=== PATIENT | female | born 1990 | race Caucasian/White ===

== ENCOUNTER 2016-03-23 23:16 | Inpatient (IN) ==
[2016-03-24 00:38] LABS: Amphetamine Screen,Urine Negative ng/mL (Cutoff=1000); Barbiturate Screen,Urine Negative ng/mL (Cutoff=200); Benzodiazepines Screen,Urine Negative ng/mL (Cutoff=200); Cannabinoid Screen,Urine Negative ng/mL (Cutoff = 50); Cocaine Screen,Urine Negative ng/mL (Cutoff= 300); Opiate Screen,Urine Negative ng/mL (Cutoff=300); Phencyclidine Screen,Urine Negative ng/mL (Cutoff=25)
[2016-03-24 00:45] LABS: Bilirubin,Urine Negative (Negative); Blood,Urine Negative (Negative); Clarity,Urine Clear (Clear); Color,Urine Yellow (Yellow); Glucose,Urine (UA) Normal (Normal); Ketones,Urine Negative (Negative); Leukocyte Esterase,Urine Negative (Negative); Nitrite,Urine Negative (Negative); Protein,Urine Negative (Neg-Trace); Specific Gravity,Urine >= 1.030 (1.010-1.025); Urobilinogen,Urine Normal (Normal)
[2016-03-24 01:07] LABS: Acetaminophen < 1.0 mcg/mL (10-30); Ethanol < 10 mg/dL (0-10); Salicylate < 5.0 mg/dL (15-30)
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
[2016-03-24 02:13] LABS: Alanine Aminotransferase 11 Units/L (0-55); Albumin/Globulin Ratio 1.2 (1.1-2.2); Alkaline Phosphatase 102 Units/L (38-126); Aspartate Amino Transferase 16 Units/L (5-34); BUN/Creatinine Ratio 21 (6-26); Bilirubin,Direct 0.1 mg/dL (0.0-0.5); Bilirubin,Indirect 0.1 mg/dL (0.0-1.2); Bilirubin,Total 0.2 mg/dL (0.2-1.2); Blood Urea Nitrogen 16 mg/dL (7-20); Calcium 9.9 mg/dL (8.6-10.8); Carbon Dioxide 17 mEq/L (19-29); Chloride 111 mEq/L (98-109); Globulin 3.4 g/dL (2.4-3.5); Glucose 88 mg/dL (70-99); Osmolality,Calculated 289 (280-300); Potassium 3.9 mEq/L (3.5-4.5); Sodium 139 mEq/L (136-145); Total Protein 7.4 g/dL (6.0-8.3); eGFR For African Americans > 60 (> 60); eGFR For Non-African Americans > 60 (> 60)
[2016-03-24 02:34] LABS: Thyroid Stimulating Hormone 0.745 mcIU/mL (0.350-4.840)
[2016-03-24 02:43] LABS: Basophils # 0.1 K/mcL (0.0-0.2); Basophils % 0.5 %; Eosinophils # 0.5 K/mcL (0.0-0.6); Eosinophils % 4.9 %; Hemoglobin 13.5 g/dL (11.5-15.4); Immature Granulocytes % 0.2 % (0-4); Immature Platelets 1.4 % (1.1-6.1); Lymphocytes # 3.2 K/mcL (0.6-4.6); Lymphocytes % 33.5 %; Mean Corpuscular HGB Conc 32.9 g/dL (31.6-35.5); Mean Corpuscular Volume 88.2 fL (83.0-100.0); Mean Platelet Volume 8.9 fL (9.4-12.4); Monocytes # 0.6 K/mcL (0.0-1.3); Monocytes % 6.1 %; Neutrophils # 5.2 K/mcL (1.6-8.9); Platelet Count 286 K/mcL (140-400); Red Blood Count 4.65 M/mcL (3.82-4.97); Red Cell Distribution Width 12.9 % (11.5-14.5); Segmented Neutrophils % 54.8 %
[2016-03-24] MEDS ORDERED: hydrOXYzine pamoate 25 MG CAPSULE PO PRN (05:48)
[2016-03-24] MEDS ORDERED: Acetaminophen 325 MG TABLET PO PRN (05:48)
[2016-03-24] MEDS ORDERED: *HR* LORazepam 2 MG/ML VIAL IM PRN ×2 (05:48→05:57)
[2016-03-24] MEDS ORDERED: Haloperidol Lactate 5 MG/ML VIAL IM PRN (05:48)
[2016-03-24] MEDS ORDERED: MOM Conc 10 ML UD.LIQ PO PRN (05:48)
[2016-03-24] MEDS ORDERED: Mag Hydrox/Al Hydrox/Simeth 30 ML UDC PO PRN (05:48)
[2016-03-24] MEDS ORDERED: Ibuprofen 400 MG TABLET PO PRN (05:48)
[2016-03-24] MEDS ORDERED: *HR* LORazepam 1 MG TABLET PO PRN ×2 (05:48→05:57)
[2016-03-24] MEDS: Vitamin B Complex/Vit C/Vit E 1 EACH TABLET PO SCH (09:23)
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
[2016-03-24] MEDS: Nicotine 2 MG GUM BC PRN ×2 (12:59→18:51)
[2016-03-24] MEDS: Mirtazapine 15 MG TABLET PO SCH (20:12)
[2016-03-25] MEDS: traZODone 50 MG TABLET PO PRN ×2 (00:04→22:04)
[2016-03-25] MEDS: Vitamin B Complex/Vit C/Vit E 1 EACH TABLET PO SCH (08:22)
--- NOTE | 2016-03-25 09:59 | Psychiatry Progress Note ---
Date of Encounter: 03/25/16 Time of Encounter: 09:55 Subjective Interval history: Patient seen and evaluated this morning. Patient reports that she feels like she had a "heavy sleep at" explained to patient that this was the first day of her taking the medication and that she probably felt like that she also refused received when necessary trazodone at 5 this morning which might have led to her feeling extra sedated. Patient reports that she feels like her anxiety is a little better control. Patient reports she had a visit with mom and her daughter last night which she reports she was tearful because she missed her daughter. Patient reports having some issues with her attention and concentration as well as anxiety and her depression. We discussed starting Wellbutrin to help with attention and concentration and that it be an adjunct to her Zoloft patient was agreeable to this. Patient has been med compliant. Appetite fair. Patient has been interacting with other peers and participating in groups and activities. Patient reports that she does not want to have a heavy sleep due to having to care for her child at night. We discussed giving a trial of the Remeron 1 more night to see how she sleeps. And patient was agreeable to this. At the time of evaluation patient denied SI or HI and no overt psychosis was noted. Review of Systems Psychiatric: Reports: depression, anxiety, panic attacks. Denies: auditory hallucinations, visual hallucinations Objective: Exam Patient orientation: Yes Person, Yes Time, Yes Place, Yes Circumstance Level of alertness: Alert Patient appearance: Appropriate Behavior: anxious Psychomotor activity: Normal Eye contact: Maintains Eye Contact Mood description: Depressed, Anxious Affect description: congruent with mood Speech pattern: Normal rate Speech volume: Normal Thought process: Intact Thought content: Yes Intact Judgment: Fair Insight: Partial Results - Vital Signs Vital Signs: Temp Pulse Resp BP Pulse Ox 98.0 F 96 16 106/70 98 03/25/16 08:41 03/25/16 08:41 03/25/16 08:41 03/25/16 08:41 03/23/16 23:18 Assessment and Plan (1) Depression Current visit: Yes Status: Acute Additional Plan: 03/25: start wellbutrin SR 150 mg for attention, concentration, depression 03/24: increase zoloft 150 mg qday for depressive sx's and anxiety Risks, benefits, side effects, alternatives discussed w/pt: Yes Patient agreeable to treatment: Yes Qualifiers: Depression Type: major depressive disorder Major depression recurrence: recurrent Active/Remission status: currently active Major depression episode severity: moderate Qualified Code(s): F33.1 - Major depressive disorder, recurrent, moderate (2) Anxiety Current visit: Yes Status: Acute Plan: Continue hospitalization, Encourage participation in unit milieu, Group Therapy, Monitor sleep, Monitor appetite, Family/Supportive other meeting Additional Plan: 03/25: continue remeron 03/24: start remeron 7.5 mg for anxiety and insomnia Risks, benefits, side effects, alternatives discussed w/pt: Yes Patient agreeable to treatment: Yes Consult Discharge Plan - Plan Referrals: [facility] [Outside] - 03/31/16 8:30 am (The above appointment is with Juli Fagan, counselor at [facility]. Your first appointment will be very thorough and the total appointment time will take between two and three hours. You will be completing paperwork, meeting with a counselor and a nurse, and developing a treatment plan. You will receive follow- up appointments for on-going services , which could include counseling and community support. Please bring the following with you to your first visit to the clinic: 1) proof of household income (two consecutive pay stubs, social security award letter, bank statement , statement letter from [facility], child support statement, IRS 1040 or W2 form, or a statement from the person who financially supports you stating they help provide for your basic needs), 2) proof of residency (drivers license, a piece of mail showing your address, a statement from person you live with verifying you live at their address), 3) your social security number, and 4) your insurance card (if you have commercial insurance you must call to obtain a prior authorization number before you arrive to your first appointment). If you do not bring these items, you will not be seen.) [facility] [Outside] (You will see psychiatric prescriber, Dr. Brown, on 05/12/2016 @ 10:00am. Please arrive 15 minutes early for this appointment to complete paperwork. You may contact the office regularly to check for cancellations that may allow you to be seen sooner by the psychiatric prescriber.) Ariel Benites MD [Partnered Physician] - 04/01/16 9:45 am (The above appointment is with Dr. Benites.)
[2016-03-25] MEDS: BuPROPion SR (12 HR) 150 MG TABLET PO SCH (10:24)
[2016-03-25] MEDS: Nicotine 2 MG GUM BC PRN ×2 (12:34→20:00)
[2016-03-25] MEDS ORDERED: hydrOXYzine pamoate 25 MG CAPSULE PO PRN (17:16)
[2016-03-25] MEDS: Mirtazapine 15 MG TABLET PO SCH (22:04)
[2016-03-26] MEDS: BuPROPion SR (12 HR) 150 MG TABLET PO SCH (08:51)
[2016-03-26] MEDS: Vitamin B Complex/Vit C/Vit E 1 EACH TABLET PO SCH (08:51)
--- NOTE | 2016-03-26 10:47 | Psychiatry Progress Note ---
Date of Encounter: 03/27/16 Time of Encounter: 10:46 Subjective Interval history: Patient seen and evaluated.. Patient reports that she feels that the Wellbutrin is helping with her attention and concentration. But feels that it is wearing off around 2 or 3 and she is getting irritable and restless. Patient has been medication compliant. Patient denied SI or HI at the time of the evaluation. Patient reports that she misses her daughter. Patient has been having a visit with her mother and daughter every evening which has been going well. Per staff patient has been socializing with peers smiling and laughing and very cooperative. Review of Systems Psychiatric: Reports: depression, anxiety, panic attacks. Denies: auditory hallucinations, visual hallucinations Objective: Exam Patient orientation: Yes Person, Yes Time, Yes Place, Yes Circumstance Level of alertness: Alert Patient appearance: Appropriate Behavior: anxious Psychomotor activity: Normal Eye contact: Maintains Eye Contact Mood description: Depressed, Anxious Affect description: congruent with mood Speech pattern: Normal rate Speech volume: Normal Thought process: Intact Thought content: Yes Intact Judgment: Fair Insight: Partial Results - Vital Signs Vital Signs: Temp Pulse Resp BP Pulse Ox 97.8 F 101 16 117/81 98 03/26/16 09:00 03/26/16 09:00 03/26/16 09:00 03/26/16 09:00 03/23/16 23:18 Assessment and Plan (1) Depression Current visit: Yes Status: Acute Additional Plan: 03/26: add wellbutrin in the afternoon due to needing ongoing stablility conentration and attention 03/25: start wellbutrin SR 150 mg for attention, concentration, depression 03/24: increase zoloft 150 mg qday for depressive sx's and anxiety Risks, benefits, side effects, alternatives discussed w/pt: Yes Patient agreeable to treatment: Yes Qualifiers: Depression Type: major depressive disorder Major depression recurrence: recurrent Active/Remission status: currently active Major depression episode severity: moderate Qualified Code(s): F33.1 - Major depressive disorder, recurrent, moderate (2) Anxiety Current visit: Yes Status: Acute Plan: Continue hospitalization, Encourage participation in unit milieu, Group Therapy, Monitor sleep, Monitor appetite, Family/Supportive other meeting Risks, benefits, side effects, alternatives discussed w/pt: Yes Patient agreeable to treatment: Yes Consult Discharge Plan - Plan Referrals: [facility] [Outside] - 03/31/16 8:30 am (The above appointment is with Juli Fagan, counselor at [facility]. Your first appointment will be very thorough and the total appointment time will take between two and three hours. You will be completing paperwork, meeting with a counselor and a nurse, and developing a treatment plan. You will receive follow- up appointments for on-going services , which could include counseling and community support. Please bring the following with you to your first visit to the clinic: 1) proof of household income (two consecutive pay stubs, social security award letter, bank statement , statement letter from [facility], child support statement, IRS 1040 or W2 form, or a statement from the person who financially supports you stating they help provide for your basic needs), 2) proof of residency (drivers license, a piece of mail showing your address, a statement from person you live with verifying you live at their address), 3) your social security number, and 4) your insurance card (if you have commercial insurance you must call to obtain a prior authorization number before you arrive to your first appointment). If you do not bring these items, you will not be seen.) [facility] [Outside] (You will see psychiatric prescriber, Dr. Brown, on 05/12/2016 @ 10:00am. Please arrive 15 minutes early for this appointment to complete paperwork. You may contact the office regularly to check for cancellations that may allow you to be seen sooner by the psychiatric prescriber.) Ariel Benites MD [Partnered Physician] - 04/01/16 9:45 am (The above appointment is with Dr. Benites.) Prescriptions: BuPROPion SR (12 HR) [Wellbutrin SR] 100 mg PO 1400 #30 tablet.er BuPROPion SR (12 HR) [Wellbutrin SR] 150 mg PO DAILY #30 tablet.er Buspirone HCl [Buspar] 5 mg PO BID #60 tablet Mirtazapine [Remeron] 7.5 mg PO HS #30 tablet Sertraline [Zoloft] 150 mg PO DAILY #30 tablet
[2016-03-26] MEDS ORDERED: BuPROPion SR (12 HR) 100 MG TABLET PO SCH (14:00)
[2016-03-26] MEDS: Nicotine 2 MG GUM BC PRN ×2 (14:58→17:59)
[2016-03-26] MEDS: Mirtazapine 15 MG TABLET PO SCH (21:34)
[2016-03-26 21:58] VITALS: BP 111/80
[2016-03-27] MEDS: Vitamin B Complex/Vit C/Vit E 1 EACH TABLET PO SCH (08:38)
[2016-03-27] MEDS: BuPROPion SR (12 HR) 150 MG TABLET PO SCH (08:38)
--- NOTE | 2016-03-27 08:53 | Discharge Summary ---
Date of Encounter: 03/27/16 Time of Encounter: 08:50 Diagnosis - Discharge Diagnosis (1) Depression Status: Acute Qualifiers: Depression Type: major depressive disorder Major depression recurrence: recurrent Active/Remission status: currently active Major depression episode severity: moderate Qualified Code(s): F33.1 - Major depressive disorder, recurrent, moderate (2) Anxiety Status: Acute Medications - Discharge Medications Prescriptions: BuPROPion SR (12 HR) [Wellbutrin SR] 100 mg PO 1400 #30 tablet.er BuPROPion SR (12 HR) [Wellbutrin SR] 150 mg PO DAILY #30 tablet.er Buspirone HCl [Buspar] 5 mg PO BID #60 tablet Mirtazapine [Remeron] 7.5 mg PO HS #30 tablet Sertraline [Zoloft] 150 mg PO DAILY #30 tablet BuPROPion SR (12 HR) [Wellbutrin SR] 100 mg PO 1400 #30 tablet.er 03/27/16 [Rx] BuPROPion SR (12 HR) [Wellbutrin SR] 150 mg PO DAILY #30 tablet.er 03/27/16 [Rx] Buspirone HCl [Buspar] 5 mg PO BID #60 tablet 03/27/16 [Rx] Mirtazapine [Remeron] 7.5 mg PO HS #30 tablet 03/27/16 [Rx] Sertraline [Zoloft] 150 mg PO DAILY #30 tablet 03/27/16 [Rx] Allergies Amoxicillin Adverse Reaction (Verified 03/16/15 00:17) Nausea Provider Date of admission: 03/24/16 05:30 Primary care physician: PCP NO Discharging clinician: Michele Szymanski Assessment and Plan - Patient/Caregiver Discharge Instructions Activity: resume usual activities as tolerated, return to work, return to school Diet: regular diet - Follow up Plan Follow up with: [facility] [Outside] - 03/31/16 8:30 am (The above appointment is with Juli Fagan, counselor at [facility]. Your first appointment will be very thorough and the total appointment time will take between two and three hours. You will be completing paperwork, meeting with a counselor and a nurse, and developing a treatment plan. You will receive follow- up appointments for on-going services , which could include counseling and community support. Please bring the following with you to your first visit to the clinic: 1) proof of household income (two consecutive pay stubs, social security award letter, bank statement , statement letter from [facility], child support statement, IRS 1040 or W2 form, or a statement from the person who financially supports you stating they help provide for your basic needs), 2) proof of residency (drivers license, a piece of mail showing your address, a statement from person you live with verifying you live at their address), 3) your social security number, and 4) your insurance card (if you have commercial insurance you must call to obtain a prior authorization number before you arrive to your first appointment). If you do not bring these items, you will not be seen.) [facility] [Outside] (You will see psychiatric prescriber, Dr. Brown, on 05/12/2016 @ 10:00am. Please arrive 15 minutes early for this appointment to complete paperwork. You may contact the office regularly to check for cancellations that may allow you to be seen sooner by the psychiatric prescriber.) Ariel Benites MD [Partnered Physician] - 04/01/16 9:45 am (The above appointment is with Dr. Benites.) Functional capacity at discharge: independent ambulation Overall status at discharge: Stable Disposition: Home, Self-Care Hospital Course Hospital course: Ms. Madrigal is a 25 year old female with anxiety and depression admitted to the behavioral health unit for safety and stabilization. Patient was admitted and restarted on her home medications patient reported that her depression was controlled with the Zoloft but felt like her anxiety was an ongoing issue. Patient did report having a young child at home whom she has to wake up or in the middle the night. We discussed increasing the Zoloft to 150 for further anxiety control and starting Remeron 7.5 at bedtime to help with anxiety and insomnia. Patient tolerated this medication while patient then reported that she was having difficulty with her attention and concentration and felt like she was tired to we discussed starting Wellbutrin patient tolerated Wellbutrin well felt like it helped with her attention and concentration did not have any side effects this. Patient had visitation from her mother and her baby almost every evening which went well. Patient reported looking forward to following up with outpatient med management and counseling on discharge. Patient had been medication compliant while being in the hospital. Patient's appetite and sleep was fair. Patient was interacting and socializing with everyone in the milieu. The patient denied SI or HI. Patient did not exhibit any overt psychosis. Patient reported feeling stable for discharge and felt that she had improved since admission. Time spent discussing smoking cessation with patient: 3 to 10 minutes Does patient wish to continue nicotine replacement upon disc: No - Time Spent with Patient Total time spent providing and/or coordinating discharge services: Less than 30 minutes Quality - Multiple Antipsychotics Patient discharged on 2 or more antipsychotic medications: No Procedures - Procedures Procedures: Medication Management, Crisis Stabilization Mental Status Exam - Mental Status Exam Patient orientation: Yes Person, Yes Time, Yes Place, Yes Circumstance Level of alertness: Alert Patient appearance: Appropriate Behavior: calm Psychomotor activity: Normal Eye contact: Maintains Eye Contact Mood description: Euthymic/stable Affect description: congruent with mood Speech pattern: Normal rate Speech Volume: Normal Thought process: Intact Thought Content: Yes Intact Judgment: Fair Insight: Partial
== END 2016-03-27 09:45 | disposition home or self-care (01) | DRG 885 ==
LOC: EMEROO 23:16 → 1ANU 03-24 05:11
PROVIDERS: ADMIT Psychiatry & Neurology Psychiatry; ATTEND Psychiatry & Neurology Psychiatry

== ENCOUNTER 2020-04-11 05:37 | Inpatient (IN) ==
[2020-04-11] MEDS ORDERED: Lidocaine 1% 20 ML MDV INFILT PRN (05:39)
[2020-04-11] MEDS ORDERED: Ondansetron 4 MG/2 ML VIAL IVP PRN (05:39)
[2020-04-11] MEDS ORDERED: *HR* Nalbuphine 10 MG/ML AMPUL IV PRN (05:39)
[2020-04-11] MEDS ORDERED: Naloxone 0.4 MG/ML INJ IVP PRN (05:39)
[2020-04-11] MEDS ORDERED: Famotidine 20 MG/2 ML VIAL IVP PRN (05:39)
[2020-04-11] MEDS ORDERED: Metoclopramide 10 MG/2 ML VIAL IVP PRN (05:39)
[2020-04-11] MEDS ORDERED: miSOPROStoL 25 MCG TABLET PO PRN (05:41)
[2020-04-11] MEDS ORDERED: Ringers Solution, Lactated 1,000 ML IVC SCH (05:45)
[2020-04-11 06:22] LABS: Basophils # 0.1 K/mcL (0.0-0.2); Basophils % 0.5 %; Eosinophils # 0.2 K/mcL (0.0-0.6); Hemoglobin 10.2 g/dL (11.5-15.4); Lymphocytes # 2.3 K/mcL (0.6-4.6); Lymphocytes % 20.8 %; Mean Corpuscular HGB Conc 31.9 g/dL (31.6-35.5); Mean Corpuscular Hemoglobin 27.6 pg (28.0-33.3); Mean Corpuscular Volume 86.7 fL (83.0-100.0); Mean Platelet Volume 9.7 fL (9.4-12.4); Monocytes # 0.9 K/mcL (0.0-1.3); Monocytes % 8.4 %; Neutrophils # 7.4 K/mcL (1.6-8.9); Platelet Count 178 K/mcL (140-400); Red Blood Count 3.69 M/mcL (3.82-4.97); Red Cell Distribution Width 13.3 % (11.5-14.5); Segmented Neutrophils % 66.3 %; White Blood Count 11.2 K/mcL (4.3-11.1)
[2020-04-11 07:16] LABS: Adenovirus Not Detected (Not Detect); Bordetella Pertussis Not Detected (Not Detect); Chlamydophila pneumoniae Not Detected (Not Detect); Coronavirus 229E Not Detected (Not Detect); Coronavirus HKU1 Not Detected (Not Detect); Coronavirus NL63 Not Detected (Not Detect); Coronavirus OC43 Not Detected (Not Detect); Human Metapneumovirus Not Detected (Not Detect); Human Rhinovirus/Enterovirus Not Detected (Not Detect); Influenza A Subtype 2009 H1 Not Detected (Not Detect); Influenza B Not Detected (Not Detect); Mycoplasma pneumoniae Not Detected (Not Detect); Parainfluenza Virus 1 Not Detected (Not Detect); Parainfluenza Virus 2 Not Detected (Not Detect); Parainfluenza Virus 3 Not Detected (Not Detect); Parainfluenza Virus 4 Not Detected (Not Detect); Respiratory Syncytial Virus Not Detected (Not Detect); SARS-CoV-2 Not Detected (Not Detect)
[2020-04-11 07:21] LABS: Amphetamine Screen,Urine Negative ng/mL (Cutoff=1000); Barbiturate Screen,Urine Negative ng/mL (Cutoff=200)
[2020-04-11 07:22] LABS: Benzodiazepines Screen,Urine Negative ng/mL (Cutoff=300); Cannabinoid Screen,Urine Negative ng/mL (Cutoff = 50); Cocaine Screen,Urine Negative ng/mL (Cutoff= 300); Opiate Screen,Urine Negative ng/mL (Cutoff=300); Phencyclidine Screen,Urine Negative ng/mL (Cutoff=25)
[2020-04-11] MEDS ORDERED: BUPIVACAINE MPF 0.5% EP SCH ×2 (09:45)
[2020-04-11] MEDS ORDERED: SODIUM CHLORIDE 0.9% EP SCH ×2 (09:45)
[2020-04-11] MEDS ORDERED: Ropivacaine/PF 0.2% 20 ML VIAL ONE (12:04)
[2020-04-11] MEDS ORDERED: *HR* Ropivacaine/PF 0.5% 20 ML VIAL ONE (12:04)
[2020-04-11] MEDS ORDERED: Oxytocin 20 units/ LR 1000 mL 20 UNIT/1,000 ML BAG IVC SCH (14:45)
[2020-04-11] MEDS ORDERED: Ropivacaine/PF 0.2% 200 ML EP SCH (17:30)
[2020-04-12] MEDS ORDERED: Benzocaine/Menthol 56 GM AEROSOL SPRAY TP PRN (01:37)
[2020-04-12] MEDS ORDERED: Oxytocin 20 units/ LR 1000 mL 20 UNIT/1,000 ML BAG IVC ONE (01:37)
[2020-04-12] MEDS ORDERED: Measles/Mumps/Rubella Vacc 0.5 ML VIAL SQ PRN (01:37)
[2020-04-12] MEDS ORDERED: Rho Immune Globulin 1,500 UNIT SYRINGE IM PRN (01:37)
[2020-04-12] MEDS ORDERED: Oxytocin 20 units/ LR 1000 mL 20 UNIT/1,000 ML BAG IVC SCH (01:37)
[2020-04-12] MEDS: Acetaminophen 325 MG TABLET PO PRN ×2 (02:05→18:31)
[2020-04-12] MEDS: Ibuprofen 600 MG TABLET PO PRN ×4 (02:05→21:22)
[2020-04-12 05:43] LABS: Basophils % 0.2 %; Eosinophils % 0.1 %; Hematocrit 29.6 % (35.3-44.9); Hemoglobin 9.5 g/dL (11.5-15.4); Immature Granulocytes % 0.8 % (0-4); Lymphocytes # 1.2 K/mcL (0.6-4.6); Lymphocytes % 7.2 %; Mean Corpuscular HGB Conc 32.1 g/dL (31.6-35.5); Mean Corpuscular Hemoglobin 28.2 pg (28.0-33.3); Mean Corpuscular Volume 87.8 fL (83.0-100.0); Mean Platelet Volume 10.1 fL (9.4-12.4); Monocytes # 1.2 K/mcL (0.0-1.3); Monocytes % 7.3 %; Neutrophils # 13.6 K/mcL (1.6-8.9); Platelet Count 176 K/mcL (140-400); Red Blood Count 3.37 M/mcL (3.82-4.97); Red Cell Distribution Width 13.4 % (11.5-14.5); Segmented Neutrophils % 84.4 %; White Blood Count 16.1 K/mcL (4.3-11.1)
[2020-04-12] MEDS: Prenatal Vit/FA 1 EACH TABLET PO SCH (09:11)
[2020-04-13] MEDS: Prenatal Vit/FA 1 EACH TABLET PO SCH (07:45)
[2020-04-13 07:54] VITALS: BP 99/67
[2020-04-13] MEDS: Acetaminophen 325 MG TABLET PO PRN (08:22)
== END 2020-04-13 15:55 | disposition home or self-care (01) | DRG 542 ==
LOC: 1NENULAB 05:37 → 1NENUOBS 04-12 02:06
PROVIDERS: ADMIT Obstetrics & Gynecology; ATTEND Obstetrics & Gynecology